=== PATIENT | female | born 1960 | race Caucasian/White ===

== ENCOUNTER → 2017-10-03 | Outpatient (CLI) | payer OTHER ==
[~2017-10-03] MED LIST: AMIT10; AMIT75 PO; ASCO250CH PO; ATEN25; ATEN50 PO; Advil200 M1 PO; Bactrim Ds Tab1 EACH PO; CITA20; CITA20 PO; CLON.1 PO; CODEINE-GUAIFE120 ML PO; CONESTTC VAG; CYCL10 PO; Cipro500 MG PO; Crutch1 EACH MISC; ENDOCET 2.5-321 EACH PO; FEXPSEER PO; FURO20 PO; Flagyl500 MG PO; Flomax0.4 MG PO; GABA300 PO; IBUP600 PO; KETO10 PO; Keflex500 MG PO; LEVO750 PO; METF500 PO; METF500C PO; METPRE4DP PO; Multiple Vitam1 EAC1 PO; Norco 5-325 Ta1 EACH PO; Pepcid40 MG PO; Percocet 5-3251 EACH PO; Prednisone10 MG PO; Prednisone20 MG PO; Prinivil10 MG PO; Roxicodone5 MG PO; TELM20; TRAZ100 PO; TRAZ50 PO; Ultram50 MG PO; VICODIN 5-3001 EACH PO; Zofran Odt8 MG SL; Zofran8 MG PO
[2017-10-03 10:54] LABS: BASOPHILS ABSOLUTE AUTO 0.08 K/mm3 (0.00-0.23); BASOPHILS PERCENT AUTO 0 % (0-2); EOSINOPHILS ABSOLUTE AUTO 0.09 K/mm3 (0.00-0.68); EOSINOPHILS PERCENT AUTO 1 % (0-6); Hemoglobin 14.4 g/dL (11.5-16.0); IMMATURE GRAN ABSOLUTE AUTO 0.09 K/mm3 (0.00-0.10); IMMATURE GRAN PERCENT AUTO 1 % (0-1); LYMPHOCYTES ABSOLUTE AUTO 2.45 K/mm3 (0.84-5.20); LYMPHOCYTES PERCENT AUTO 13 % (21-46); MONOCYTES ABSOLUTE AUTO 1.08 K/mm3 (0.16-1.47); MONOCYTES PERCENT AUTO 6 % (4-13); Mean Corpuscular HGB 30.9 pg (26.0-34.0); Mean Corpuscular HGB Conc 35.1 g/dL (31.5-36.5); Mean Corpuscular Volume 88 fL (80-100); Mean Platelet Volume 10.7 fL (9.1-12.4); NEUTROPHILS ABSOLUTE AUTO 15.22 K/mm3 (1.96-9.15); NEUTROPHILS PERCENT AUTO 80 % (41-73); Platelet Count 235 K/mm3 (150-400); RDW Coefficient Variation 12.6 % (11.7-14.2); RDW Standard Deviation 40.9 fL (35.1-46.3); Red Blood Cell Count 4.66 M/mm3 (3.80-5.20); White Blood Cell Count 19.01 K/mm3 (4.00-11.30)
[2017-10-03 11:03] LABS: Alanine Aminotransfer (ALT/SGP 47 U/L (12-78); Albumin, Blood 3.4 g/dL (3.4-5.0); Albumin/Globulin Ratio 0.8 (0.8-1.8); Alk Phos 103 U/L (40-126); Anion Gap 7 mmol/L (6-16); Aspartate Aminotrans (AST/SGOT 32 U/L (12-37); Bilirubin, Total 0.8 mg/dL (0.1-1.0); Blood Urea Nitrogen 11 mg/dL (8-24); Bun/Creatinine Ratio 15.5 (12.0-20.0); CO2, Blood 29 mmol/L (21-32); Calcium, Blood 8.8 mg/dL (8.5-10.1); Chloride, Blood 100 mmol/L (98-108); Creatinine, Blood 0.71 mg/dL (0.40-1.00); Globulin, Blood 4.4 g/dL (2.2-4.0); Glomerular Filtration Rate >60 (60-); Glucose, Blood 127 mg/dL (70-99); Potassium, Blood 3.8 mmol/L (3.5-5.5); Sodium, Blood 136 mmol/L (136-145); Total Protein, Blood 7.8 g/dL (6.4-8.2)
== END | disposition home or self-care (01) ==
LOC: LAB EV 10:48
PROVIDERS: General Practice
DX: J18.9 Pneumonia, unspecified organism (principal)
CPT/HCPCS: 80053; 85025

== ENCOUNTER 2018-06-20 11:03 | Emergency (ER) | payer OTHER ==
[~2018-06-20] VITALS: Ht 162.6 cm; Wt 103.4 kg
[~2018-06-20 11:03] MED LIST changes: -Bactrim Ds Tab1 EACH PO; -CITA20 PO; -CLON.1 PO; -CODEINE-GUAIFE120 ML PO; -GABA300 PO; -KETO10 PO; -METF500C PO; -Percocet 5-3251 EACH PO; -Roxicodone5 MG PO; -TRAZ100 PO; -Zofran8 MG PO
[2018-06-20 11:33] LABS: BASOPHILS ABSOLUTE AUTO 0.05 K/mm3 (0.00-0.23); BASOPHILS PERCENT AUTO 1 % (0-2); EOSINOPHILS ABSOLUTE AUTO 0.21 K/mm3 (0.00-0.68); EOSINOPHILS PERCENT AUTO 2 % (0-6); Hematocrit 44.7 % (33.0-51.0); IMMATURE GRAN ABSOLUTE AUTO 0.03 K/mm3 (0.00-0.10); IMMATURE GRAN PERCENT AUTO 0 % (0-1); LYMPHOCYTES ABSOLUTE AUTO 2.68 K/mm3 (0.84-5.20); LYMPHOCYTES PERCENT AUTO 28 % (21-46); MONOCYTES ABSOLUTE AUTO 0.58 K/mm3 (0.16-1.47); MONOCYTES PERCENT AUTO 6 % (4-13); Mean Corpuscular HGB 29.8 pg (26.0-34.0); Mean Corpuscular HGB Conc 33.6 g/dL (31.5-36.5); Mean Corpuscular Volume 89 fL (80-100); Mean Platelet Volume 10.5 fL (9.1-12.4); NEUTROPHILS PERCENT AUTO 64 % (41-73); Platelet Count 233 K/mm3 (150-400); RDW Coefficient Variation 12.6 % (11.7-14.2); RDW Standard Deviation 41.2 fL (35.1-46.3); Red Blood Cell Count 5.04 M/mm3 (3.80-5.20); White Blood Cell Count 9.75 K/mm3 (4.00-11.30)
[2018-06-20 11:40] LABS: Source, Urine Clean Catch
[2018-06-20 11:50] LABS: Alanine Aminotransfer (ALT/SGP 39 U/L (12-78); Albumin, Blood 3.6 g/dL (3.4-5.0); Albumin/Globulin Ratio 0.9 (0.8-1.8); Alk Phos 88 U/L (50-136); Anion Gap 6 mmol/L (6-16); Aspartate Aminotrans (AST/SGOT 29 U/L (12-37); Bilirubin, Total 0.4 mg/dL (0.1-1.0); Blood Urea Nitrogen 11 mg/dL (8-24); Bun/Creatinine Ratio 18.1 (12.0-20.0); CO2, Blood 28 mmol/L (21-32); Calcium, Blood 8.4 mg/dL (8.5-10.1); Chloride, Blood 108 mmol/L (98-108); Creatinine, Blood 0.61 mg/dL (0.40-1.00); Globulin, Blood 4.1 g/dL (2.2-4.0); Glomerular Filtration Rate >60 (60-); Glucose, Blood 109 mg/dL (70-99); Potassium, Blood 4.3 mmol/L (3.5-5.5); Sodium, Blood 142 mmol/L (136-145); Total Protein, Blood 7.7 g/dL (6.4-8.2)
[2018-06-20 11:59] LABS: Bilirubin, Urine Neg (Neg); Blood, Urine 3+ (Neg); Glucose Qualitative, Urine Neg (Neg); Ketones, Urine Neg (Neg); Leukocyte Esterase, Urine 3+ (Neg); Nitrite, Urine Neg (Neg); Protein, Urine 1+ (Neg); Urobilinogen, Urine NORM (Normal); pH, Urine 6.5 (5.0-8.0)
[2018-06-20 12:18] LABS: Appearance, Urine Hazy (Clear); Color, Urine Yellow (P-Yellow)
[2018-06-20 12:19] LABS: Bacteria Few /hpf; Mucus Light (0-Heavy); Squamous Epithelial Cells Few /hpf (Few)
[2018-06-20] MEDS ORDERED: KETO10 PO (12:33)
[2018-06-20] MEDS ORDERED: Roxicodone5 MG PO (12:33)
[2018-06-20] MEDS ORDERED: Zofran8 MG PO (12:33)
== END 2018-06-20 12:45 | disposition home or self-care (01) ==
LOC: ER 11:03
PROVIDERS: Internal Medicine
DX: N13.2 Hydronephrosis with renal and ureteral calculous obstruction (principal); Z88.0 Allergy status to penicillin; Z88.6 Allergy status to analgesic agent; Z88.5 Allergy status to narcotic agent; Z79.899 Other long term (current) drug therapy; Z87.442 Personal history of urinary calculi
CPT/HCPCS: 74176; 80053; 81001; 83690; 85025; 87086; 96374; 96375; 99284-25; J1885; J2405; J3010

== ENCOUNTER 2018-12-01 09:05 | Emergency (ER) | payer OTHER ==
[~2018-12-01] VITALS: Ht 160 cm; Wt 98.9 kg
[~2018-12-01 09:05] MED LIST changes: +Bactrim Ds Tab1 EACH PO; +KETO10 PO; +Percocet 5-3251 EACH PO; +Roxicodone5 MG PO; +Zofran8 MG PO
[2018-12-01] MEDS ORDERED: METF500C PO (09:25)
[2018-12-01] MEDS ORDERED: CITA20 PO (09:25)
[2018-12-01] MEDS ORDERED: AMIT75 PO (09:26)
[2018-12-01] MEDS ORDERED: TRAZ100 PO (09:26)
[2018-12-01] MEDS ORDERED: GABA300 PO (09:26)
[2018-12-01] MEDS ORDERED: ATEN50 PO (09:26)
[2018-12-01] MEDS ORDERED: CLON.1 PO (09:27)
[2018-12-01] MEDS ORDERED: CODEINE-GUAIFE120 ML PO (11:03)
== END 2018-12-01 11:10 | disposition home or self-care (01) ==
LOC: ER 09:05
DX: J06.9 Acute upper respiratory infection, unspecified (principal); Z88.0 Allergy status to penicillin; Z88.2 Allergy status to sulfonamides; Z88.8 Allergy status to other drugs, medicaments and biological substances; Z88.5 Allergy status to narcotic agent; Z79.899 Other long term (current) drug therapy; Z79.84 Long term (current) use of oral hypoglycemic drugs
CPT/HCPCS: 71046; 99283-25

== ENCOUNTER 2019-10-19 11:51 | Emergency (ER) | payer OTHER ==
[~2019-10-19] VITALS: Ht 162.6 cm; Wt 97.1 kg
[~2019-10-19 11:51] MED LIST changes: +CITA20 PO; +CLON.1 PO; +CODEINE-GUAIFE120 ML PO; +GABA300 PO; +METF500C PO; +TRAZ100 PO
[2019-10-19 12:32] LABS: BASOPHILS ABSOLUTE AUTO 0.05 K/mm3 (0.00-0.23); BASOPHILS PERCENT AUTO 1 % (0-2); EOSINOPHILS ABSOLUTE AUTO 0.15 K/mm3 (0.00-0.68); EOSINOPHILS PERCENT AUTO 2 % (0-6); Hemoglobin 15.1 g/dL (11.5-16.0); IMMATURE GRAN ABSOLUTE AUTO 0.04 K/mm3 (0.00-0.10); IMMATURE GRAN PERCENT AUTO 0 % (0-1); LYMPHOCYTES ABSOLUTE AUTO 2.79 K/mm3 (0.84-5.20); LYMPHOCYTES PERCENT AUTO 30 % (21-46); MONOCYTES ABSOLUTE AUTO 0.54 K/mm3 (0.16-1.47); MONOCYTES PERCENT AUTO 6 % (4-13); Mean Corpuscular HGB 30.4 pg (26.0-34.0); Mean Corpuscular HGB Conc 32.8 g/dL (31.5-36.5); Mean Corpuscular Volume 93 fL (80-100); Mean Platelet Volume 10.6 fL (9.1-12.4); NEUTROPHILS ABSOLUTE AUTO 5.88 K/mm3 (1.96-9.15); NEUTROPHILS PERCENT AUTO 62 % (41-73); Platelet Count 247 K/mm3 (150-400); RDW Coefficient Variation 12.6 % (11.7-14.2); RDW Standard Deviation 43.3 fL (35.1-46.3); Red Blood Cell Count 4.96 M/mm3 (3.80-5.20); White Blood Cell Count 9.45 K/mm3 (4.00-11.30)
[2019-10-19 12:40] LABS: Source, Urine Clean Catch
[2019-10-19 12:46] LABS: Bilirubin, Urine Neg (Neg); Blood, Urine Neg (Neg); Glucose Qualitative, Urine Neg (Neg); Ketones, Urine Neg (Neg); Leukocyte Esterase, Urine 1+ (Neg); Nitrite, Urine Neg (Neg); Protein, Urine 2+ (Neg); Urobilinogen, Urine NORM (Normal)
[2019-10-19 13:04] LABS: Alanine Aminotransfer (ALT/SGP 36 U/L (12-78); Albumin, Blood 3.7 g/dL (3.4-5.0); Albumin/Globulin Ratio 0.9 (0.8-1.8); Alk Phos 92 U/L (50-136); Anion Gap 6 mmol/L (6-16); Aspartate Aminotrans (AST/SGOT 22 U/L (12-37); Bilirubin, Total 0.4 mg/dL (0.1-1.0); Blood Urea Nitrogen 19 mg/dL (8-24); Bun/Creatinine Ratio 33.4 (12.0-20.0); CO2, Blood 27 mmol/L (21-32); Calcium, Blood 8.8 mg/dL (8.5-10.1); Chloride, Blood 106 mmol/L (98-108); Creatinine, Blood 0.57 mg/dL (0.40-1.00); Globulin, Blood 4.1 g/dL (2.2-4.0); Glomerular Filtration Rate >60 (60-); Glucose, Blood 100 mg/dL (70-99); Potassium, Blood 3.9 mmol/L (3.5-5.5); Sodium, Blood 139 mmol/L (136-145); Total Protein, Blood 7.8 g/dL (6.4-8.2)
[2019-10-19 13:15] LABS: Appearance, Urine Clear (Clear); Color, Urine Yellow (P-Yellow)
[2019-10-19 13:16] LABS: Bacteria Rare /hpf; Red Blood Cells, Urine 0-2 /hpf (0-2); Squamous Epithelial Cells Rare /hpf (Few)
[2019-10-19] MEDS ORDERED: Percocet 5-3251 EACH PO (13:28)
[2019-10-19] MEDS ORDERED: METPRE4DP PO (13:28)
[2019-10-19] MEDS ORDERED: CYCL10 PO (13:28)
== END 2019-10-19 13:54 | disposition home or self-care (01) ==
LOC: ER 11:51
PROVIDERS: Emergency Medicine
DX: M54.5 Low back pain (principal); R10.9 Unspecified abdominal pain; Z88.2 Allergy status to sulfonamides; Z88.0 Allergy status to penicillin; Z88.5 Allergy status to narcotic agent; Z88.8 Allergy status to other drugs, medicaments and biological substances; Z79.84 Long term (current) use of oral hypoglycemic drugs; Z79.899 Other long term (current) drug therapy; Z87.442 Personal history of urinary calculi
CPT/HCPCS: 36415; 80053; 81001; 85025; 87086; 99283

== ENCOUNTER → 2020-02-01 | Outpatient (CLI) | payer OTHER | END | disposition home or self-care (01) | LOC: LAB SHORT 10:01 → LAB EV 10:01 | DX: J02.9 Acute pharyngitis, unspecified (principal) | CPT/HCPCS: 87081 ==

== ENCOUNTER → 2021-05-19 | Outpatient (CLI) | payer OTHER | END | disposition home or self-care (01) | LOC: LAB 15:09 → LAB SHORT 15:09 | DX: R82.90 Unspecified abnormal findings in urine (principal) | CPT/HCPCS: 87086 ==

== ENCOUNTER → 2022-04-15 | Outpatient (CLI) | payer OTHER | END | disposition home or self-care (01) | LOC: LAB 11:08 → LAB SHORT 11:08 | DX: N39.0 Urinary tract infection, site not specified (principal) | CPT/HCPCS: 87086 ==

== ENCOUNTER 2024-11-17 06:45 | Day surgery (SDC) | payer MEDICARE, OTHER ==
[~2024-11-17] VITALS: Ht 162.6 cm; Wt 90.0 kg
[~2024-11-17 06:45] MED LIST changes: +AMLODIPINE BES2.5 MG PO; +LIDO700A20 TOP; +MELO7.5 PO; +Ventolin/Prove6.7 GM INH
[2024-11-17] MEDS ORDERED: Lactated Ringer's 1,000 ML IV ONE ×2 (08:44→09:21)
[2024-11-17] MEDS ORDERED: propofoL 20 ML IV ONE ×2 (09:21)
[2024-11-17 10:31] VITALS: BP 146/72
== END 2024-11-17 10:28 | disposition home or self-care (01) ==
LOC: ORSCSDS 06:45
PROVIDERS: Surgery
PROC: 0DBM8ZX Excision of Descending Colon, Via Natural or Artificial Opening Endoscopic, Diagnostic (ICD-10-PCS; principal; 2024-11-17 09:15)
PROC: 0DBN8ZX Excision of Sigmoid Colon, Via Natural or Artificial Opening Endoscopic, Diagnostic (ICD-10-PCS; principal; 2024-11-17 09:15)
PROC: 0DBH8ZX Excision of Cecum, Via Natural or Artificial Opening Endoscopic, Diagnostic (ICD-10-PCS; principal; 2024-11-17 09:15)
DX: K59.00 Constipation, unspecified (principal); D12.0 Benign neoplasm of cecum; K63.5 Polyp of colon; K57.30 Diverticulosis of large intestine without perforation or abscess without bleeding; K64.1 Second degree hemorrhoids; Z86.0100 Personal history of colon polyps, unspecified; I10 Essential (primary) hypertension; K21.9 Gastro-esophageal reflux disease without esophagitis; F41.9 Anxiety disorder, unspecified; J45.909 Unspecified asthma, uncomplicated; R73.03 Prediabetes; Z79.899 Other long term (current) drug therapy
CPT/HCPCS: 82947; 88305; J2704; J7120

== ENCOUNTER 2025-01-16 09:30 | Day surgery (SDC) | payer MEDICARE, OTHER ==
[~2025-01-16] VITALS: Ht 160 cm; Wt 92.0 kg
[2025-01-16] VITALS (10 sets, daily range): BP systolic 103–156; BP diastolic 61–86
[~2025-01-16 09:30] MED LIST changes: +ALBU90OI INH; +ATEN25 PO; +Acetaminophen 500 MG Tab PO SCH; +Acyclovir400 MG PO; +CeFAZolin Sodium 2,000 MG in NS 100 ML IV SCH; +Chlorhexidine Mouth Care 15 ML UDC MT SCH; +Cyclobenzaprine5 MG PO; +Flonase 0.05% N16 GM; +Lactated Ringer's 1,000 ML IV SCH; +OxyCODONE HCL 10 MG TABCR PO SCH; +Ropivacaine 0.5% HCl/Pf 123.125 MG,EPINEPHrine HCL 0.25 MG,Ketorolac Tromethamine 15 MG... INFIL SCH; +Tranexamic Acid 100 ML IV SCH; +VENTOLIN INH; -Ventolin/Prove6.7 GM INH; +[UNRECOGNIZED DRUG - OTHER] INH
[2025-01-16] MEDS ORDERED: propofoL 20 ML IV ONE (09:46)
[2025-01-16] MEDS ORDERED: FentaNYL Citrate 50 MCG/ML 2 ML Injection ONE (09:46)
[2025-01-16] MEDS ORDERED: Midazolam HCl 1MG / ML 2ML Vial ONE (09:46)
[2025-01-16] MEDS ORDERED: AMLODIPINE BES2.5 MG PO (10:20)
[2025-01-16] MEDS ORDERED: Mobic15 MG PO (10:22)
[2025-01-16] MEDS ORDERED: Acyclovir 400 MG Tab PO PRN (11:10)
--- NOTE | 2025-01-16 11:13 | NUR ---
History, Chart, Medications and Allergies reviewed before start of procedure. Patient up to Ambulate independently. Gait steady. Pre-Op teaching done. Pt verbalizes understanding. Patient confirms NPO status and agrees with scheduled surgery. Patient reports completing Chlorhexadine shower X2 prior to admission to hospital. Surgical site prepped with 2% Chlorhexidine cloth wipe.
[2025-01-16] MEDS ORDERED: Fluticasone 0.05% Nasal Spray PRN (11:15)
[2025-01-16] MEDS ORDERED: Albuterol HFA200 ACT/6.7 GM INH INH PRN (11:15)
[2025-01-16] MEDS ORDERED: DiphenhydrAMINE HCL 25 MG Cap PO PRN (11:20)
[2025-01-16] MEDS ORDERED: HYDROmorphone HCl/Pf 1MG SYR IV PRN (11:20)
[2025-01-16] MEDS ORDERED: FLU VACC TS2024-25(6MOS UP)/PF 45 MCG/0.5 ML SYRINGE IM SCH (11:20)
[2025-01-16] MEDS ORDERED: Magnesium Hydroxide Conc 10 ML UDC PO PRN (11:25)
[2025-01-16] MEDS ORDERED: Promethazine HCl 25 MG Tab PO PRN (11:25)
[2025-01-16] MEDS ORDERED: Bisacodyl 10 MG Supp PR PRN (11:25)
[2025-01-16] MEDS ORDERED: Lactated Ringer's 1,000 ML IV SCH (11:25)
[2025-01-16] MEDS ORDERED: Ondansetron HCl 2 MG / ML 2ML Vial IV PRN (11:30)
[2025-01-16] MEDS ORDERED: Metoclopramide HCl 5MG / ML 2ML Vial IV PRN (11:30)
[2025-01-16] MEDS ORDERED: OxyCODONE HCL 5 MG TAB PO PRN ×2 (11:30)
--- NOTE | 2025-01-16 14:04 | NUR ---
ARRIVAL TO UNIT PT ARRIVED TO UNIT FROM PACU VIA BED. S/P KA. BECKYEL CDI. POLAR ZENAIDA ON, LOLA HOSE ON. PT DENIES PAIN AT THIS TIME. ABLE TO WIGGLE HER TOES. DENIES NUMBNESS CURRENTLY. TOLERATING SIPS OF WATER AND JELLO, NO NAUSEA. ON ROOM AIR DENIES SOB. PT EAGER TO HOPEFULLY DISCHARGE TODAY. EDUCATED ON CRITERIA NEEDED TO DISCHARGE TONIGHT.
[2025-01-16] MEDS ORDERED: Acetaminophen 500 MG Tab PO SCH (16:00)
[2025-01-16] MEDS ORDERED: ASPI81CH PO (17:26)
[2025-01-16] MEDS ORDERED: ACET500 PO (17:26)
[2025-01-16] MEDS ORDERED: OXYC5 PO (17:27)
[2025-01-16] MEDS ORDERED: DOCU100 PO (17:27)
[2025-01-16] MEDS ORDERED: Ketorolac Tromethamine 15mg Vial IV SCH (18:00)
--- NOTE | 2025-01-16 18:01 | NUR ---
DISCHARGE S/P [facility] NO ACUTE CHANGES SINCE ARRIVAL TO UNIT. PAIN CONTROLLED PER EMAR. ALL INSTRUCTIONS GONE OVER WITH PATIENT AND SPOUSE. EXTRA DRESSINGS SENT WITH PATIENT. ESCORTED OUT VIA WHEELCHAIR, ALL BELONGINGS WITH PATIENT.
[2025-01-16] MEDS ORDERED: CeFAZolin Sodium 2,000 MG in NS 100 ML IV SCH (19:30)
[2025-01-16] MEDS ORDERED: Atenolol 25 MG Tab PO SCH (21:00)
[2025-01-16] MEDS ORDERED: Docusate Sodium 100 MG Cap PO SCH (21:00)
[2025-01-16] MEDS ORDERED: AmLODIPine Besylate 5 MG Tab PO SCH (21:00)
[2025-01-17] MEDS ORDERED: Aspirin 81 MG Chew PO SCH (09:00)
== END 2025-01-16 17:54 | disposition home or self-care (01) ==
LOC: ORSCMMR 09:30 → ORD 10:30 → ORSCMMR 10:30 → ORD 11:30 → SURS 13:32 → ORSCMMR 17:54
PROVIDERS: Orthopaedic Surgery
PROC: 0SRD0JA Replacement of Left Knee Joint with Synthetic Substitute, Uncemented, Open Approach (ICD-10-PCS; principal; 2025-01-16 10:30)
DX: M17.12 Unilateral primary osteoarthritis, left knee (principal); I10 Essential (primary) hypertension; J45.909 Unspecified asthma, uncomplicated; K21.9 Gastro-esophageal reflux disease without esophagitis; R73.03 Prediabetes; F41.9 Anxiety disorder, unspecified; Z79.899 Other long term (current) drug therapy
CPT/HCPCS: 73560-LT; 82947; 97110; 97116; 97162; A9270; C1713; C1776; C1887; J0171; J0690; J0735; J1885; J2250; J2704; J2795; J3010; J7120